=== PATIENT | male | born 1960 | race Caucasian/White ===

== ENCOUNTER 2025-03-06 16:38 | Emergency (ER) | payer MEDICAID, OTHER ==
[~2025-03-06] VITALS: Ht 175.3 cm; Wt 80.7 kg
[~2025-03-06 16:38] MED LIST: METH50PO2 PO
[2025-03-06 18:50] VITALS: BP 115/82; TEMP 98.2; O2SAT 98
== END 2025-03-06 19:08 | disposition home or self-care (01) ==
LOC: ER 16:42
DX: F41.0 Panic disorder [episodic paroxysmal anxiety] (principal); E11.9 Type 2 diabetes mellitus without complications; I50.9 Heart failure, unspecified; Z88.6 Allergy status to analgesic agent; Z79.899 Other long term (current) drug therapy